=== PATIENT | male | born 1945 | race Caucasian/White ===

== ENCOUNTER 2017-06-10 12:30 | Outpatient (RCR) | payer OTHER ==
[~2017-06-10 12:30] MED LIST: AMANTADINE100 M2 ORAL; AMBIEN10 MG ORAL; ASPIRIN81 MG ORAL; CELEBREX100 MG ORAL; KLONOPIN1 MG ORAL; STALEVO 100 TA1 EACH PO; [UNRECOGNIZED DRUG - OTHER]
== END 2017-06-15 | disposition home or self-care (01) ==
LOC: PTY 12:30
DX: M75.102 Unspecified rotator cuff tear or rupture of left shoulder, not specified as traumatic (principal); G20 Parkinson's disease

== ENCOUNTER 2017-06-21 12:50 | Outpatient (RCR) | payer OTHER | END 2017-07-16 | disposition home or self-care (01) | LOC: PTY 12:50 | DX: M75.102 Unspecified rotator cuff tear or rupture of left shoulder, not specified as traumatic (principal) ==

== ENCOUNTER 2017-09-16 16:00 | Outpatient (RCR) | payer OTHER | END 2017-10-15 | disposition home or self-care (01) | LOC: PTY 16:00 | DX: M75.102 Unspecified rotator cuff tear or rupture of left shoulder, not specified as traumatic (principal) ==